=== PATIENT | female | born 1960 | race Caucasian/White ===

== ENCOUNTER → 2021-11-27 13:53 | Outpatient (CLI) | payer BC, SELFPAY ==
--- NOTE | ~2021-11-27 | XR_ITS ---
EXAMINATION: XR lumbar spine 2-3V EXAM DATE: 11/27/2021 14:43 INDICATION: Neck, Mid, And Lumbar Spine Pain TECHNIQUE: Lumber spine frontal, lateral projections for interpretation. There is no prior study for comparison. FINDINGS: There is moderate mid and lower lumbar facet arthropathy. Moderate L5-S1 disc disease, mil d at the levels above. There is 3 mm anterolisthesis L4 on L5 without suspicion of spondylolysis. The vertebral body heights are maintained. Sacrum, sacroiliac joints, sacral arcuate lines are intact. P araspinal soft tissue is unremarkable. IMPRESSION: Moderate lower lumbar facet arthropathy and L5-S1 disc disease. Reviewed, dictated and finalized at location A. OR JAVASCRIPT DEVELOPER
--- NOTE | ~2021-11-27 | XR_ITS ---
EXAMINATION: XR thoracic spine 2V EXAM DATE: 11/27/2021 14:43 INDICATION: Neck, Mid, And Lumbar Spine Pain TECHNIQUE: Frontal and lateral projections of the thoracic spine as well as lateral swimmers projecti on of the upper thoracic spine for interpretation. There is no prior study for comparison. FINDINGS: Mild mid and lower thoracic disc disease. The vertebral body and disc heights are otherwis e well maintained. The vertebral bodies are aligned in the AP dimension. Paraspinal soft tissue is un remarkable. There are no bony erosions identified. IMPRESSION: Mild thoracic spondylosis. Reviewed, dictated and finalized at location A. ONAL SALES EXECUTIVE IMPRESSION: Mild thoracic spondylosis.
--- NOTE | ~2021-11-27 | XR_ITS ---
EXAMINATION: XR_CERV2-3V_CR EXAM DATE: 11/27/2021 14:43 INDICATION: No known recent injury provided at this time. Pain of the cervical spine. TECHNIQUE: Cervical spine frontal, lateral, lateral swimmers, and open-mouth odontoid projections. There is no prior study for comparison. FINDINGS: There is moderate disc disease C4-C7. Moderate cervical spondylosis. There is mild reversa l of the normal cervical lordosis which may be positional, degenerative or spasm. The odontoid proce ss is intact. The lateral masses of C1 line up with C2. Prevertebral soft tissue and pre-dens space are within normal limits. Lung apices unremarkable. There are no acute fractures identified. IMPRESSION: 1. Moderate cervical spondylosis. 2. Reversal of cervical lordosis. Reviewed, dictated and finalized at location A. INE REBUILDER
== END ==
PROVIDERS: PCP Chiropractor; Visit Provider Chiropractor
DX: M47.892 Other spondylosis, cervical region (principal); M47.894 Other spondylosis, thoracic region; M51.37 Other intervertebral disc degeneration, lumbosacral region
CPT/HCPCS: 72040; 72070; 72100

== ENCOUNTER → 2022-03-19 12:57 | Outpatient (CLI) | payer BC, SELFPAY ==
--- NOTE | ~2022-03-19 | XR_ITS ---
XR hip RT 2V w AP pelvis DATE: 03/19/2022 13:54 INDICATION: Right hip pain TECHNIQUE: AP pelvis. AP and lateral views of right hip. COMPARISON: None FINDINGS: Normal alignment at the pubic symphysis and sacroiliac joints. No fracture or dislocation, avascular necrosis or bone destruction of the right hip. Hip joint spaces are symmetric and relatively preserved. Osteopenia. IMPRESSION: Osteopenia Reviewed, dictated and finalized at location B. IMPRESSION: Osteopenia
--- NOTE | ~2022-03-19 | XR_ITS ---
XR lumbar spine 2-3V DATE: 03/19/2022 13:54 INDICATION: Low back pain TECHNIQUE: AP, lateral and coned lateral lumbosacral standing views COMPARISON: 11/27/2021 lumbar spine FINDINGS: There is prominent osteopenia. There is degenerative changes apophyseal joints with associated grade 1 anterolisthesis at L3-4 and L 4-5. No fracture or bone destruction is detected. The lower thoracic and lumbar pedicles are intact. There is mild to moderate degenerative disc disease at L1-2 and L3-4, L4-5 and L5-S1. IMPRESSION: Prominent diffuse osteopenia Degenerative changes apophyseal joints with associated minimal grade 1 anterolisthesis at L3-4 and L4 -5 Mild to moderate degenerative disc disease Reviewed, dictated and finalized at location B. IMPRESSION: Prominent diffuse osteopenia Degenerative changes apophyseal joints with associated minimal grade 1 anteroli sthesis at L3-4 and L4-5 Mild to moderate degenerative disc disease
== END ==
PROVIDERS: PCP Chiropractor; Visit Provider Chiropractor
DX: M47.817 Spondylosis without myelopathy or radiculopathy, lumbosacral region (principal); M85.851 Other specified disorders of bone density and structure, right thigh
CPT/HCPCS: 72100; 73502